=== PATIENT | female | born 1965 | race Caucasian/White ===

== ENCOUNTER 2025-04-07 06:51 | Day surgery (SDC) | payer OTHER ==
[~2025-04-07] VITALS: Ht 167.6 cm; Wt 101.8 kg
[~2025-04-07 06:51] MED LIST: ALPR0.25 PO; AMLO1TAB24 PO; K2 P1TAB PO; L-LY500T23 PO; LEVO175T2 PO; MAG100TA PO; METO200T15 PO; MILK500C PO; MULTTAB61 PO; OLME40TA PO; OMEGCAP4 PO; OMEP-173 PO; ROSU20TA86 PO; SPIR-10 PO; SUMA100T2 PO; TURM500T PO; ULTR5TAB PO
[2025-04-07] MEDS ORDERED: LIDOCAINE 2% INJ 100 MG/5 ML SYRINGE As Ordered ONE (07:58)
[2025-04-07 08:42] VITALS: BP 120/83; O2SAT 100
== END 2025-04-07 08:50 | disposition home or self-care (01) ==
LOC: M OPP 06:51
PROVIDERS: ATTEND Surgery
DX: K31.89 Other diseases of stomach and duodenum (principal); R10.13 Epigastric pain; Z88.8 Allergy status to other drugs, medicaments and biological substances; Z79.899 Other long term (current) drug therapy